=== PATIENT | male | born 1985 | race Caucasian/White ===

== ENCOUNTER 2016-03-01 07:20 | Emergency (ER) ==
[2016-03-01 07:27] VITALS: BP 130/74
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
== END 2016-03-01 08:15 | disposition home or self-care (01) ==
LOC: P.ED 07:20
DX: S61.210A Laceration without foreign body of right index finger without damage to nail, initial encounter (principal); L53.9 Erythematous condition, unspecified; M79.89 Other specified soft tissue disorders
CPT/HCPCS: 99282